=== PATIENT | female | born 1945 | race Caucasian/White ===

== ENCOUNTER 2024-04-29 12:43 | Emergency (ER) | payer OTHER ==
[~2024-04-29] VITALS: Ht 170.2 cm; Wt 79.4 kg
[2024-04-29] MEDS: LIDOCAINE 1% INJ 50 ML MDV IJ ONE (14:30)
[2024-04-29] MEDS: BACI/NEOM/POLY B OINT PKT 1 UDPKT PACKET TP ONE (14:30)
[2024-04-29] MEDS ORDERED: LIDOCAINE 0.5%-EPI 1:200,000 50 ML VIAL ONE (14:35)
[2024-04-29] MEDS ORDERED: TDAP [DIPH/PERTUSSIS/TET] 0.5 ML VIAL IM ONE (15:28)
[2024-04-29] MEDS: TDAP [DIPH/PERTUSSIS/TET] 0.5 ML VIAL IM ONE (15:30)
[2024-04-29 15:40] VITALS: BP 145/88; TEMP 98.3; O2SAT 97
== END 2024-04-29 15:41 | disposition home or self-care (01) ==
LOC: ER 12:56
DX: S01.81XA Laceration without foreign body of other part of head, initial encounter (principal); Z85.9 Personal history of malignant neoplasm, unspecified; W10.8XXA Fall (on) (from) other stairs and steps, initial encounter; Y93.89 Activity, other specified; Y92.89 Other specified places as the place of occurrence of the external cause; Y99.8 Other external cause status
CPT/HCPCS: 12014; 70450; 72125; 90471; 90715; 99285; A6403; J3490